=== PATIENT | female | born 1985 | race Two or more races ===

== ENCOUNTER → 2018-08-06 | Outpatient (CLI) | payer BC | END | disposition home or self-care (01) | LOC: LAB 10:54 | DX: Z30.09 Encounter for other general counseling and advice on contraception (principal) | CPT/HCPCS: 84144 ==

== ENCOUNTER → 2018-08-15 | Outpatient (CLI) | payer BC ==
[2018-08-15 12:22] LABS: Follicle Stimulating Hormone 46.21 IU/L (SEE BELOW); Leuteinizing Hormone 12.1 IU/L
== END | disposition home or self-care (01) ==
LOC: LAB 10:37
DX: Z30.09 Encounter for other general counseling and advice on contraception (principal)
CPT/HCPCS: 82670; 83001; 83002

== ENCOUNTER → 2019-01-10 | Outpatient (CLI) | payer BC ==
[2019-01-10 14:45] LABS: Basophils # (auto) 0.1 uL; Eosinophils # (auto) 0.1 uL; Eosinophils % (auto) 1.5 % (0.0-7.0); Hematocrit 38.7 % (36.0-46.0); Hemoglobin 12.7 g/dL (12.2-16.2); Lymphocytes # (auto) 1.4 uL; Lymphocytes % (auto) 25.5 % (10.0-50.0); Mean Corpuscular Hemoglobin 27.5 pg (28.0-32.0); Mean Corpuscular Hgb Conc. 32.9 g/dL (32.0-36.0); Mean Corpuscular Volume 83.7 fL (80.0-100.0); Monocytes # (auto) 0.3 uL; Monocytes % (auto) 5.5 % (0.0-12.0); Neutrophils # (auto) 3.6 uL; Neutrophils % (auto) 66.5 % (37.0-80.0); Nucleated Red Blood Cells % 0.1 %; Platelet Count (auto) 163 10^3/uL (140-450); Red Blood Cells 4.63 10^6/uL (4.0-5.20); Red Cell Distribution Width 15.2 % (11.8-14.3); White Blood Cell 5.4 10^3/uL (4.4-10.8)
[2019-01-11 05:06] LABS: RPR Non Reactive (Non Reactive)
== END | disposition home or self-care (01) ==
LOC: LAB 14:11
DX: Z34.81 Encounter for supervision of other normal pregnancy, first trimester (principal); Z3A.12 12 weeks gestation of pregnancy
CPT/HCPCS: 36415; 85025; 86592; 86703; 86762; 86850; 86900; 86901; 87340

== ENCOUNTER 2019-05-14 11:37 | Observation (INO) | payer BC ==
[~2019-05-14] VITALS: Ht 157.5 cm; Wt 59.0 kg
[2019-05-14 12:07] VITALS: BP 90/56
== END 2019-05-14 13:35 | disposition home or self-care (01) | DRG 833 ==
LOC: ER 11:59 → LDRP 12:10 → ER 12:18
PROVIDERS: ADMIT Obstetrics & Gynecology; ATTEND Obstetrics & Gynecology
DX: O26.812 Pregnancy related exhaustion and fatigue, second trimester (principal); R55 Syncope and collapse; Z3A.27 27 weeks gestation of pregnancy
CPT/HCPCS: 59025; 81002; 82962; 99284; G0378

== ENCOUNTER → 2019-05-14 | Outpatient (CLI) | payer BC ==
[2019-05-14 10:22] LABS: Basophils # (auto) 0 uL; Basophils % (auto) 0.3 % (0.0-2.0); Eosinophils # (auto) 0.1 uL; Eosinophils % (auto) 1.4 % (0.0-7.0); Hematocrit 36.6 % (36.0-46.0); Hemoglobin 12.3 g/dL (12.2-16.2); Lymphocytes # (auto) 1.1 uL; Lymphocytes % (auto) 16.2 % (10.0-50.0); Mean Corpuscular Hemoglobin 29.3 pg (28.0-32.0); Mean Corpuscular Hgb Conc. 33.7 g/dL (32.0-36.0); Monocytes # (auto) 0.4 uL; Monocytes % (auto) 6.5 % (0.0-12.0); Neutrophils # (auto) 5.3 uL; Neutrophils % (auto) 75.6 % (37.0-80.0); Platelet Count (auto) 164 10^3/uL (140-450); Red Blood Cells 4.21 10^6/uL (4.0-5.20); Red Cell Distribution Width 16.2 % (11.8-14.3); White Blood Cell 6.9 10^3/uL (4.4-10.8)
[2019-05-15 05:06] LABS: RPR Non Reactive (Non Reactive)
== END | disposition home or self-care (01) ==
LOC: LAB 07:44
DX: Z34.92 Encounter for supervision of normal pregnancy, unspecified, second trimester (principal)
CPT/HCPCS: 36415; 82951; 85025; 86592